=== PATIENT | female | born 1970 | race Caucasian/White ===

== ENCOUNTER 2021-11-24 09:56 | Outpatient (CLI) | payer OTHER, SELFPAY ==
[2021-11-24 12:22] LABS: Erythrocyte Sedimentation Rate 2 mm/hr (0-30)
[2021-11-24 12:28] LABS: Absolute Lymphocyte Count 1.65 X10^3/uL (0.83-4.51); Absolute Neutrophil Count 3.3 X10^3/uL (2.0-7.7); Basophil# 0.04 X10^3/uL; Basophil% 0.7 % (0-1); Eosinophil# 0.12 X10^3/uL; Eosinophils% 2.2 % (0-5); Hematocrit 43.6 % (37-47); Hemoglobin 14.6 g/dL (12.0-15.0); Lymphocyte # 1.65 X10^3/ul (0.83-4.51); Lymphocyte % 29.9 % (19-41); Mean Corp Hgb Conc 33.5 g/dL (32-36); Mean Corpuscular Hgb 31.4 pg (27.0-32.0); Mean Corpuscular Volume 93.8 fL (81-99); Mean Platelet Vol. 10.7 fl (6.2-12.0); Monocyte# 0.43 X10^3/uL; Monocyte% 7.8 % (0-10); NRBC Flagged by Analyzer 0 % (0-5); Neutrophil # 3.26 X10^3/uL (2.7-7.7); Neutrophil % 59.2 % (47-70); Platelet Count 264 K/mm3 (150-450); RBC Distribution Width CV 13.4 % (11.6-14.6); RBC Distribution Width SD 46.4 fl (35.1-43.9); Red Blood Count 4.65 M/mm3 (4.2-5.4); White Blood Count 5.5 K/mm3 (4.4-11.0)
[2021-11-24 12:33] LABS: ALB/GLOB Ratio 1.1 RATIO (0.9-2.4); AST(SGOT) 11 U/L (15-37); Alanine Aminotransfer ALT/SGPT 16 U/L (13-56); Albumin, Serum 3.7 g/dL (3.2-5.0); Alkaline Phosphatase 87 U/L (45-117); Anion Gap 3 (5-15); BUN 14 mg/dL (7-18); BUN/Creat Ratio 20.4 RATIO (10-20); CRP < 2.90 mg/L (0.0-3.0); Calcium,Total 8.7 mg/dL (8.5-10.1); Chloride 107 mmol/L (98-107); Creatinine, Serum 0.69 mg/dL (0.55-1.02); EST Glomerular Filtration Rate 95 mL/min (>60); Est Glom Filt Rate - Afr Amer 116 mL/min (>60); Globulin 3.4 g/dL (2.2-4.2); Glucose 88 mg/dL (74-106); Potassium 4.1 mmol/L (3.5-5.1); Protein, Total 7.1 g/dL (6.4-8.2); Rheumatoid Factor < 10.0 IU/mL (<15); Sodium Level 138 mmol/L (136-145); Thyroid Stim Hormone (TSH) 1.42 uIU/mL (0.358-3.74); Uric Acid 4.2 mg/dL (2.6-6.0)
[2021-11-26 16:13] LABS: ANTINUCLEAR ANTIBODIES DIRECT Negative (Negative)
== END 2021-11-24 23:59 | disposition home or self-care (01) ==
LOC: MFPLAB 09:58
PROVIDERS: PCP Family Medicine; Referring Provider Family Medicine; Visit Provider Family Medicine
DX: M25.50 Pain in unspecified joint (principal); M25.473 Effusion, unspecified ankle
CPT/HCPCS: 36415; 80053; 84443; 84550; 85025; 85652; 86038; 86140; 86431

== ENCOUNTER → 2023-10-21 | Outpatient (CLI) | payer OTHER, SELFPAY ==
--- OUTSIDE RECORDS SUMMARY | 2023-10-21 07:11 | XMS RPT_ITS | CCD ---
Author Name Unknown Address [address] [place] [address] Organization [facility] Care Team Providers Care Poultry Killer Name Role Phone Unavailable Primary Care Provider UnavailClaudia Larkin Primary Care Provider [phone] Claudia Fernandes Primary Care Provider Claudia Fernandes Primary Care Provider SUZIE LUNSFORD Attending Unavailable SUZIE LUNSFORD Referring Unavailable CLAUDIA FERNANDES Primary Care Unavailable SUZIE LUNSFORD Attending Unavailable CLAUDIA FERNANDES Primary Care Unavailable Medications Current Medications Medication Drug Class(es) Dates Sig (Normalized) Sig (Original) drospirenone 4 mg oral tablet (5 sources) Progestin Start: 08-17-2022 End: 08-30-2023 take 1 tablet by mouth once daily Drospirenone 4 MG tablet Take 1 tablet by mouth daily. 28 tablet 2 08/30/2023 Active estrogens, conjugated (long term) 0.625 mg/ml vaginal cream (7 sources) Estrogen Start: 10-11-2023 Estrogens Conjugated (Premarin) vaginal cream Thin layer to vaginal opening 2-3 times per week 30 g 0 10/11/2023 Active Completed/Discontinued Medications Medication Drug Class(es) Dates Sig (Normalized) Sig (Original) 50 ml sodium chloride 9 mg/ml injection (1 source) Start: 08-19-2021 End: 08-19-2021 0.9 % sodium chloride bolus Problems Active Problems Problem Classification Problem Date Documented Da te Episodic/Chronic Cardiac dysrhythmias (1 source) Palpitations; Translations: [Palpitations] Episodic Other female genital disorders (1 source) Abnormal uterine bleeding; Translations: [Abnormal uterine bleeding] Chronic Past or Other Problems Problem Classification Problem Date Documented Da te Episodic/Chronic Other screening for suspected conditions (not mental disorders or infectious disease) (5 sources) Patient encounter status; Translations: [Encounter for screening mammogram for malignant neoplasm of breast] Onset: 12-07-2022 Episodic Results Test Name Value Interpretation Reference Range Facil ity Vital Signs Date Time Vital Sign Value Performing Clinician Faci lity 10-11-2023 10:19-0500 Diastolic blood pressure 85 mm[Hg] Suzie Lunsford MD Work Phone: [employer] 10-11-2023 10:19-0500 Heart rate 73 /min Suzie Lunsford MD Work Phone: [employer] 10-11-2023 10:19-0500 Systolic blood pressure 128 mm[Hg] Suzie Lunsford MD Work Phone: [facility] [employer] 10-11-2023 10:18-0500 Body height 154.9 cm Suzie Lunsford MD Work Phone: [employer] 10-11-2023 10:18-0500 Body mass index (BMI) [Ratio] 27.59 kg/m2 Suzie Lunsford MD Work Phone: [employer] 10-11-2023 10:18-0500 Body weight 66.22 kg Suzie Lunsford MD Work Phone: [facility] [employer] 12-07-2022 11:12-0500 Body height 154.9 cm Suzie Lunsford MD Work Phone: [employer] 12-07-2022 11:12-0500 Body mass index (BMI) [Ratio] 25.51 kg/m2 Suzie Lunsford MD Work Phone: [employer] 12-07-2022 11:12-0500 Body weight 61.24 kg Suzie Lunsford MD Work Phone: [facility] [employer] 08-19-2021 09:40-0500 Body temperature 98.01 [degF] Manuel Norton MD Work Phone: [facility] 08-19-2021 09:40-0500 Diastolic blood pressure 99 mm[Hg] Manuel Norton MD Work Phone: [facility] 08-19-2021 09:40-0500 Heart rate 99 /min Manuel Norton MD Work Phone: [facility] 08-19-2021 09:40-0500 Respiratory rate 20 /min Manuel Norton MD Work Phone: [facility] 08-19-2021 09:40-0500 SaO2% (BldA) [Mass fraction] 100 % Manuel Norton MD Work Phone: [facility] 08-19-2021 09:40-0500 Systolic blood pressure 156 mm[Hg] Manuel Norton MD Work Phone: [facility] Encounters Encounter Date Encounter Type Care Provider Facility Start: 10-11-2023 End: 10-11-2023 ambulatory [facility] with [facility] Start: 10-11-2023 End: 10-11-2023 Encounter for gynecological examination (general) (routine) without abnormal findings [facility] with [facility] Start: 10-11-2023 End: 10-11-2023 Patient encounter procedure Suzie Lunsford MD Work Phone: [facility] Work Phone: Start: 10-11-2023 End: 10-11-2023 Periodic preventive med est patient 40-64yrs Suzie Lunsford MD Work Phone: [facility] Procedures Date Procedure Procedure Detail Performing Clinician Start: 12-07-2022 Mammography Suzie denise MD Work Phone: Start: 08-19-2021 Radiologic exam ches t single view Manuel Norton MD Work Phone: Start: 08-19-2021 Basic metabolic pane l calcium total Manuel Norton MD Work Phone: Start: 08-19-2021 Urine test visual color cmprsn meths Manuel Norton MD Work Phone: Start: 08-19-2021 Ecg routine ecg w/le ast 12 lds w/i&r Manuel Norton MD Work Phone: Start: 06-03-2020 Assay of thyroid stimulating hormone tsh Suzie Lunsford Work Phone: Start: 06-03-2020 Blood count complete automated Suzie Lunsford Work Phone: Start: 04-29-2020 Microscopic observat ion [Identifier] in Cervix by Cyto stain Manuel Norton MD Work Phone: Plan of Treatment Date Care Activity Detail Author Start: 2029 RSV Immunization age d 60 or older (1 - 1-dose 60+ series) RSV Immunization aged 60 or older (1 - 1-dose 60+ series) [facility] Start: 04-03-2028 DTaP/Tdap/Td vaccine (2 - Td or Tdap) DTaP/Tdap/Td vaccine (2 - Td or Tdap) [facility] Start: 04-03-2028 DTaP/Tdap/Td vaccine (2 - Td) DTaP/Tdap/Td vaccine (2 - Td) [place] Start: 04-03-2028 DTaP/Tdap/Td Vaccine s (2 - Td or Tdap) DTaP/Tdap/Td Vaccines (2 - Td or Tdap) [facility] Start: 04-29-2025 Screening for malign ant neoplasm of cervix [facility] Start: 12-08-2023 Screening for malign ant neoplasm of breast Mammogram [facility] Start: 10-11-2023 End: 12-09-2024 DBT Breast - bilateral screening Bilateral screening mammogram with tomosynthesis Imaging Routine Encounter for screening mammogram for malignant neoplasm of breast Expected: 10/11/2023, Expires: 12/09/2024 [facility] Work Phone: Payers Date Payer Category Payer Unknown [employer] [place] [employer] [id number] 2021-Present [address] [place] [address] Commercial [id number] 2019 Unknown [id number] Social History Date Type Detail Facility Start: 04-29-2020 End: 06-03-2020 Tobacco smoking status NHIS Never smoker [facility] Start: 04-29-2020 End: 06-03-2020 Tobacco use and exposure Never used [facility] Cramer Start: 06-03-2020 End: 10-11-2023 Alcohol intake Current drinker of alcohol (finding) [facility] Larson Start: 1970 Sex Assigned At Not on file M [facility] Williamson Start: 11-27-2022 End: 12-07-2022 Exposure to SARS-CoV-2 (event) Not sure [facility] Larson Start: 12-07-2022 History of Social function [facility] Start: 12-07-2022 Tobacco use panel [facility] History of Present illness Narrative 10-11-2023 Suzie Lunsford MD - 10/11/2023 10:15 AM EST Note Date & Type Note Facility 10-11-2023 History of Presen t illness Narrative Adriana Davenport 10/11/2023 53 y.o. Chief Complaint Patient presents with Annual Exam Annual exam No LMP recorded. Primary Care Physician: CLAUDIA FERNANDES The patient was seen and examined. She is here for her annual exam. Pap neg 2019. Mg 12/20 wnl. Colonoscopy needed. Vaginal estrogen 2 times per week due to discomfort with sex. Stopping slynd. No pelvic pain or bleeding . HPI : Adriana Davenport is a 53 y.o. female OB History Para Term AB Living 4 4 4 SAB IAB Ectopic Multiple Live Births # Outcome Date GA Lbr Henry/2nd Weight Sex Delivery Anes PTL Lv 4 Term 3 Term 2 Term 1 Term History reviewed. No pertinent past medical history. Past Surgical History: Procedure Laterality Date TONSILLECTOMY AND ADENOIDECTOMY (HISTORICAL) Family History Problem Relation Name Age of Onset Colon cancer Neg Hx Uterine cancer Neg Hx Breast cancer Neg Hx Ovarian cancer Neg Hx Social History Socioeconomic History Marital status: Spouse name: Not on file Number of children: Not on file Years of education: Not on file Highest education level: Not on file Occupational History Not on file Tobacco Use Smoking status: Never Smokeless tobacco: Never Vaping Use Vaping Use: Never used Substance and Sexual Activity Alcohol use: Yes Drug use: Never Sexual activity: Not on file Other Topics Concern Not on file Social History Narrative Not on file Social Determinants of Health Financial Resource Strain: Not on file Food Insecurity: Not on file Transportation Needs: Not on file Physical Activity: Not on file Stress: Not on file Social Connections: Not on file Intimate Partner Violence: Not on file Housing Stability: Not on file MEDICATIONS: Current Outpatient Medications Medication Sig Dispense Refill Drospirenone 4 MG tablet Take 1 tablet by mouth daily. 28 tablet 2 Estrogens Conjugated (Premarin) vaginal cream Thin layer to vaginal opening 2-3 times per week 30 g 0 triamcinolone (Kenalog) 0.1 % cream APPLY CREAM EXTERNALLY TO AFFECTED AREA TWICE DAILY No current facility-administered medications for this visit. ALLERGIES: Allergies as of 10/11/2023 (No Known Allergies) GynecologicHistory: Menstrual History: No LMP recorded. Review of Systems Constitutional: Negative for fatigue, fever and unexpected weight change. HENT: Negative for congestion and sore throat. Eyes: Negative for discharge and visual disturbance. Respiratory: Negative for cough and shortness of breath. Cardiovascular: Negative for chest pain and leg swelling. Gastrointestinal: Negative for abdominal pain, constipation, diarrhea, nausea and vomiting. Genitourinary: Negative for dysuria and pelvic pain. Musculoskeletal: Negative for arthralgias and back pain. Skin: Negative for rash. Neurological: Negative for weakness and headaches. Psychiatric/Behavioral: Negative for dysphoric mood. The patient is not nervous/anxious. PHYSICAL Exam: Constitutional: Vitals: 10/11/23 1018 10/11/23 1019 BP: (!) 141/92 128/85 Pulse: 76 73 Weight: 146 lb (66.2 kg) Height: 5' 1 (1.549 m) Physical Exam Constitutional: General: She is not in acute distress. Appearance: Normal appearance. HENT: Head: Normocephalic and atraumatic. Right Ear: External ear normal. Left Ear: External ear normal. Nose: Nose normal. Eyes: Conjunctiva/sclera: Conjunctivae normal. Neck: Thyroid: No thyromegaly. Cardiovascular: Rate and Rhythm: Normal rate. Pulmonary: Effort: Pulmonary effort is normal. No respiratory distress. Chest: Breasts: Right: No mass, nipple discharge, skin change or tenderness. Left: No mass, nipple discharge, skin change or tenderness. Abdominal: General: There is no distension. Palpations: Abdomen is soft. Tenderness: There is no abdominal tenderness. Genitourinary: General: Normal vulva. Pubic Area: No rash. Labia: Right: No rash or lesion. Left: No rash or lesion. Vagina: No vaginal discharge or bleeding. Cervix: No cervical motion tenderness. Uterus: Not enlarged and not tender. Adnexa: Right: No mass or tenderness. Left: No mass or tenderness. Rectum: Normal. Musculoskeletal: General: No swelling. Normal range of motion. Cervical back: Normal range of motion. Right lower leg: No edema. Left lower leg: No edema. Skin: General: Skin is warm and dry. Neurological: Mental Status: She is alert and oriented to person, place, and time. Mental status is at baseline. Psychiatric: Mood and Affect: Mood normal. Behavior: Behavior normal. ASSESSMENT: 53 y.o. Annual Diagnosis Plan 1. Well woman exam with routine gynecological exam Pap Smear 2. Encounter for screening mammogram for malignant neoplasm of breast Bilateral screening mammogram with tomosynthesis Chief Complaint Patient presents with Annual Exam Annual exam History reviewed. No pertinent past medical history. Hereditary Breast, Ovarian, Colon and Uterine Cancer screening Done. Tobacco & Secondary smoke risks reviewed; instructed on cessation and avoidance PLAN: Follow up in about 1 year (around 10/11/2024) for annual. Repeat Annual every 1 year PAP guidelines reviewed with pt Mammograms annually if normal. colonoscopy recommendations reviewed with patient. Routine health maintenance per patients PCP. Orders Placed This Encounter Procedures Bilateral screening mammogram with tomosynthesis Standing Status: Future Standing Expiration Date: 12/09/2024 documented in this encounter [facility] Telephone encounter Note 09-02-2023 Telephone Encounter - Ana Paula - 09/02/2023 9:00 AM EST Note Date & Type Note Facility 09-02-2023 Telephone encounter Note Form atting of this note might be different from the original. Pt notified [facility] Note 09-02-2023 Telephone Encounter - Ana Paula - 09/02/2023 9:00 AM ESTTelephone Encounter - Suzie Lunsford MD - 08/30/2023 6:00 PM ESTTelephone Encounter - Brittani Mittal - 08/30/2023 12:23 PM EST Note Date & Type Note Facility 09-02-2023 Miscellaneous Notes Formattin g of this note might be different from the original. Pt notified Refills sent Name of caller: Adriana Contact phone number: [phone] Relationship to Patient: patient Provider: [facility] Practice: OBGYN Chief Complaint/Reason for Call: Pt calling because she had discussed with Dr Lunsford about stopping the control but her annual isn't until 10/11/23. Pt only has two weeks of current pack left and wanted to know if Dr Lunsford wanted to call in more to get her until her appointment or stop it all together. Please advise. Best time of day caller can be reached: Any Patient advised that office/PCP has 24-48 business hours to return their call: documented in this encounter [facility] Telephone encounter Note 08-30-2023 Telephone Encounter - Suzie Lunsford MD - 08/30/2023 6:00 PM EST Note Date & Type Note Facility 08-30-2023 Telephone encounter Note Form atting of this note might be different from the original. Refills sent [facility] Telephone encounter Note 08-30-2023 Telephone Encounter - Brittani Mittal - 08/30/2023 12:23 PM EST Note Date & Type Note Facility 08-30-2023 Telephone encounter Note Form atting of this note might be different from the original. Name of caller: Adriana Contact phone number: [phone] Relationship to Patient: patient Provider: [facility] Practice: OBGYN Chief Complaint/Reason for Call: Pt calling because she had discussed with Dr Lunsford about stopping the control but her annual isn't until 10/11/23. Pt only has two weeks of current pack left and wanted to know if Dr Lunsford wanted to call in more to get her until her appointment or stop it all together. Please advise. Best time of day caller can be reached: Any Patient advised that office/PCP has 24-48 business hours to return their call: [facility] Evaluation note Note Date & Type Note Facility documented in this encounter [facility] Work Phone: Evaluation note Note Date & Type Note Facility documented in this encounter [facility] Evaluation note Note Date & Type Note Facility documented in this encounter [facility] Hospital Discharge instructions InstructionsAttachments Note Date & Type Note Facility Hospital Discharge instructions Manuel Norton MD - 08/19/2021 If you continue to have palpitations you may need to have a Holter monitor that can be set up by your primary care physician. 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 ACP-Advance Directive ACP-Power of Hog Room Supervisor Assessments Diagnosis Abnormal uterine bleeding Unspecified disorder of menstruation and other abnormal bleeding from female genital tract Reason for Referral Specialty Diagnoses / Procedures Referred By Contac t Referred To Contact Suzie Lunsford MD [address] [place] [address] Referral ID Status Reason Start Date Expiration Date V isits Requested Visits Authorized [id number] Authorized 1 1 Additional Source Comments INFORMATION SOURCE (unrecogn ized section and content) DATE CREATED AUTHOR AUTHOR'S ORGANIZ ATION 08/22/2021 [email or web address] DATE CREATED AUTHOR AUTHOR'S ORGANIZ ATION 10/19/2023 [employer] [facility] Reason for Visit (unrecogniz ed section and content) Reason Onset Date Comments Medication Problem 08/30/2023 Reason Comments Annual Exam Annual exam Scheduled Active and Recently Administ ered Medications (unrecognized section and content) Care Teams (unrecognized sec tion and content) Poultry Killer Relationship Specialty Start Date End Date Claudia Fernandes [address] [facility] [address] [place] [id number] PCP - General 05/05/21 Poultry Killer Relationship Specialty Start Date End Date Claudia Fernandes [address] [facility] [address] [place] [address] PCP - General 05/05/21 Poultry Killer Relationship Specialty Start Date End Date Claudia Fernandes Bella [address] [facility] [address] [place] [address] PCP - General 05/05/21 FOR RECORDS PERTAINING TO PATIENTS WHO ARE OR HAVE BEEN ENROLLED IN A CHEMICAL DEPENDENCY/SUBSTANCEABUSE PROGRAM, SOME INFORMATION MAY BE OMITTED. This clinical summary was aggregated from multiple sources. Caution should be exercised in using it in the provision of clinical care. This summary normalizes information from multiple sources, and as a consequence, information in this document may materially change the coding, format and clinical context of patient data. In addition, data may be omitted in some cases. CLINICAL DECISIONS SHOULD BE BASED ON THE PRIMARY CLINICAL RECORDS. [facility]. provides no warranty or guarantee of the accuracy or completeness of information in this document.
[2023-10-21 10:16] LABS: Absolute Lymphocyte Count 2.53 X10^3/uL (0.83-4.51); Absolute Neutrophil Count 2.9 X10^3/uL (2.0-7.7); Basophil# 0.06 X10^3/uL; Eosinophil# 0.22 X10^3/uL; Eosinophils% 3.6 % (0-5); Hemoglobin 14.6 g/dL (12.0-15.0); Lymphocyte # 2.53 X10^3/ul (0.83-4.51); Lymphocyte % 41.6 % (19-41); Mean Corpuscular Hgb 30.7 pg (27.0-32.0); Mean Corpuscular Volume 90.5 fL (81-99); Monocyte# 0.41 X10^3/uL; Monocyte% 6.7 % (0-10); NRBC Flagged by Analyzer 0 % (0-5); Neutrophil # 2.85 X10^3/uL (2.7-7.7); Neutrophil % 46.9 % (47-70); Platelet Count 234 K/mm3 (150-450); RBC Distribution Width CV 13.2 % (11.6-14.6); RBC Distribution Width SD 43.4 fl (35.1-43.9); Red Blood Count 4.75 M/mm3 (4.2-5.4); White Blood Count 6.1 K/mm3 (4.4-11.0)
[2023-10-21 10:34] LABS: Hemoglobin A1c 5.2 % (3.8-5.6)
[2023-10-21 10:49] LABS: ALB/GLOB Ratio 1.1 RATIO (0.9-2.4); AST(SGOT) 12 U/L (15-37); Alanine Aminotransfer ALT/SGPT 17 U/L (13-56); Albumin, Serum 3.4 g/dL (3.2-5.0); Alkaline Phosphatase 91 U/L (45-117); Anion Gap 6 (5-15); BUN 12 mg/dL (7-18); BUN/Creat Ratio 14.2 RATIO (10-20); Chloride 108 mmol/L (98-107); Cholesterol 204 mg/dL (200); Creatinine, Serum 0.85 mg/dL (0.55-1.02); EST Glomerular Filtration Rate 74 mL/min (>60); Est Glom Filt Rate - Afr Amer 90 mL/min (>60); Follicle Stimulating Hormone 60.1 mIU/mL; Globulin 3.2 g/dL (2.2-4.2); Glucose 91 mg/dL (74-106); High Density Lipoprotein 64 mg/dL; Luteinizing Hormone 28.3 mIU/mL; Potassium 3.8 mmol/L (3.5-5.1); Protein, Total 6.6 g/dL (6.4-8.2); Sodium Level 138 mmol/L (136-145); Thyroid Stim Hormone (TSH) 4.09 uIU/mL (0.358-3.74); Triglycerides 96 mg/dL; Very Low Density Lipoprotein 19 mg/dL (5-40)
== END | disposition home or self-care (01) ==
LOC: MTLAB 07:06
PROVIDERS: PCP Family Medicine; Referring Provider Family Medicine; Visit Provider Family Medicine
DX: Z13.228 Encounter for screening for other metabolic disorders (principal); Z78.0 Asymptomatic menopausal state; Z13.0 Encounter for screening for diseases of the blood and blood-forming organs and certain disorders involving the immune mechanism
CPT/HCPCS: 36415; 80053; 80061; 83001; 83002; 83036; 84443; 85025

== ENCOUNTER → 2023-10-31 | Outpatient (CLI) | payer OTHER, SELFPAY ==
--- OUTSIDE RECORDS SUMMARY | 2023-10-31 07:17 | XMS RPT_ITS | CCD ---
Author Name Unknown Address [address] [place] [address] Organization [facility] Care Team Providers Care Gis Software Developer Name Role Phone Unavailable Primary Care Provider UnavailClaudia Larkin Primary Care Provider [phone] Claudia Fernandes Primary Care Provider Claudia Fernandes Primary Care Provider SUZIE LUNSFORD Referring Unavailable SUZIE LUNSFORD Attending Unavailable CLAUDIA FERNANDES Primary Care Unavailable SUZIE LUNSFORD Attending Unavailable CLAUDIA FERNANDES Primary Care Unavailable Medications Current Medications Medication Drug Class(es) Dates Sig (Normalized) Sig (Original) drospirenone 4 mg oral tablet (6 sources) Progestin Start: 08-17-2022 End: 08-30-2023 take 1 tablet by mouth once daily Drospirenone 4 MG tablet Take 1 tablet by mouth daily. 28 tablet 2 08/30/2023 Active estrogens, conjugated (long term) 0.625 mg/ml vaginal cream (8 sources) Estrogen Start: 10-11-2023 Estrogens Conjugated (Premarin) [...] 85 mm[Hg] Suzie Lunsford MD Work Phone: [employer] [facility] 10-11-2023 10:19-0500 Heart rate 73 /min Suzie Lunsford MD Work Phone: [employer] [facility] 10-11-2023 10:19-0500 Systolic blood pressure 128 mm[Hg] Suzie Lunsford MD Work Phone: [facility] 10-11-2023 10:18-0500 Body height 154.9 cm Suzie Lunsford MD Work Phone: [employer] [facility] 10-11-2023 10:18-0500 Body mass index (BMI) [Ratio] 27.59 kg/m2 Suzie Lunsford MD Work Phone: [employer] [facility] 10-11-2023 10:18-0500 Body weight 66.22 kg Suzie Lunsford MD Work Phone: [facility] 12-07-2022 11:12-0500 Body height 154.9 cm Suzie Lunsford MD Work Phone: [employer] [facility] 12-07-2022 11:12-0500 Body mass index (BMI) [Ratio] 25.51 kg/m2 Suzie Lunsford MD Work Phone: [employer] [facility] 12-07-2022 11:12-0500 Body weight 61.24 kg Suzie Lunsford MD Work Phone: [facility] 08-19-2021 09:40-0500 Body temperature 98.01 [degF] Manuel Norton MD Work Phone: [facility] 08-19-2021 09:40-0500 Diastolic blood pressure 99 mm[Hg] Manuel Norton MD Work Phone: [facility] 08-19-2021 09:40-0500 Heart rate 99 /min Manuel Norton MD Work Phone: [facility] 08-19-2021 09:40-0500 Respiratory rate 20 /min Manuel Norton MD Work Phone: [facility] 08-19-2021 09:40-0500 SaO2% (BldA) [Mass fraction] 100 % Manuel Norton MD Work Phone: [facility] 08-19-2021 09:40-0500 Systolic blood pressure 156 mm[Hg] Manuel Norton MD Work Phone: [facility] Encounters Encounter Date Encounter Type Care Provider Facility Start: 10-18-2023 Telephone encounter Suzie denise MD Work Phone: [facility] Start: 10-11-2023 End: 10-11-2023 ambulatory [facility] Start: 10-11-2023 End: 10-11-2023 Encounter for gynecological examination (general) (routine) without abnormal findings [facility] Start: 10-11-2023 End: 10-11-2023 Patient encounter procedure Suzie Lunsford MD Work Phone: [facility] Work Phone: Start: 10-11-2023 End: 10-11-2023 Periodic preventive med est patient 40-64yrs Suzie Lunsford MD Work Phone: [facility] Procedures Date Procedure Procedure Detail Performing Clinician Start: 10-11-2023 Microscopic observat ion [Identifier] in Cervix by Cyto stain Suzie Lunsford MD Work Phone: Start: 12-07-2022 Mammography Suzie denise MD Work [...] Assay of thyroid stimulating hormone tsh Suzie Dixie Work Phone: Start: 06-03-2020 Blood count complete automated Suzie Lunsford Work Phone: Start: 04-29-2020 Microscopic observat ion [Identifier] in Cervix by Cyto stain Manuel Norton MD Work Phone: Plan of Treatment Date Care Activity Detail Author Start: 2029 RSV Immunization age d 60 or older (1 - 1-dose 60+ series) RSV Immunization aged 60 or older (1 - 1-dose 60+ series) [facility] Start: 10-11-2028 Screening for malign ant neoplasm of cervix [facility] Start: 04-03-2028 DTaP/Tdap/Td vaccine (2 - Td or Tdap) DTaP/Tdap/Td vaccine (2 - Td or Tdap) [facility] Start: 04-03-2028 DTaP/Tdap/Td vaccine (2 - Td) DTaP/Tdap/Td vaccine (2 - Td) [place] Start: 04-03-2028 DTaP/Tdap/Td Vaccine s (2 - Td or Tdap) DTaP/Tdap/Td Vaccines (2 - Td or Tdap) [facility] Start: 10-11-2026 Screening for malign ant neoplasm of cervix Pap Smear [facility] Start: 04-29-2025 Screening for malign ant neoplasm of cervix [facility] Start: 12-08-2023 Screening for malign ant neoplasm of breast Mammogram [facility] Start: 11-29-2023 End: 11-29-2023 Patient encounter procedure 11/29/2023 8:30 AM EST Office Visit [facility] [address] [place] [id number] Suzie Lunsford MD [address] [place] [id number] [facility] Start: 10-11-2023 End: 12-09-2024 DBT Breast - bilateral screening Bilateral screening mammogram with tomosynthesis Imaging Routine Encounter for screening mammogram for malignant neoplasm of breast Expected: 10/11/2023, Expires: 12/09/2024 [facility] Work Phone: Payers Date Payer Category Payer Unknown [employer] [id number] 2021-Present [address] [place] [address] Commercial [id number] 2019 Unknown [id number] Social History Date Type Detail Facility Start: 04-29-2020 End: 06-03-2020 Tobacco smoking status NHIS Never smoker [place] Start: 04-29-2020 End: 06-03-2020 Tobacco use and exposure Never used [place], [place] Start: 06-03-2020 End: 10-11-2023 Alcohol intake Current drinker of alcohol (finding) [place], [place] Start: 1970 Sex Assigned At Not on file [place] Start: 11-27-2022 End: 12-07-2022 Exposure to SARS-CoV-2 (event) Not sure [place] Start: 12-07-2022 History of Social function [facility] Start: 12-07-2022 Tobacco use panel [facility] Clinical Notes 08-30-2023 to 10-23-2023 Telephone Encounter - Ana Paula - 10/23/2023 4:11 PM ESTTelephone Encounter - Ana Paula - 10/23/2023 4:11 PM ESTTelephone Encounter - Renay Barrera - 10/23/2023 3:03 PM EST Note Date & Type Note Facility 10-23-2023 Telephone encounter Note Form atting of this note might be different from the original. Spoke to pt, appt is fine. [facility] 10-23-2023 Miscellaneous Notes Formattin g of this note might be different from the original. Spoke to pt, appt is fine. Patient called and is scheduled for [place] on 11/29/23 at 8:[address] Lunsford -- she is concerned about it being so far away and asked if she should be doing it sooner somehow since she had an abnormal result. L/M for pt to call to schedule appt for a colp with Patient with abnormal pap. Needs colposcopy. Pt called. Please help schedule patient. documented in this encounter [facility] 10-23-2023 Telephone encounter Note Form atting of this note might be different from the original. Patient called and is scheduled for [place] on 11/29/23 at 8:[address] Lunsford -- she is concerned about it being so far away and asked if she should be doing it sooner somehow since she had an abnormal result. [facility] 10-23-2023 Telephone encounter Note Form atting of this note might be different from the original. L/M for pt to call to schedule appt for a colp with [facility] 10-18-2023 Telephone encounter Note Form atting of this note might be different from the original. Patient with abnormal pap. Needs colposcopy. Pt called. Please help schedule patient. [employer] 10-11-2023 History of Presen t illness Narrative [...] Live Births # Outcome Date GA Lbr Ehnry/2nd Weight Sex Delivery Anes PTL Lv 4 [...] Expiration Date: 12/09/2024 documented in this encounter [facility] 09-02-2023 Telephone encounter Note Form atting of this note might be different from the original. Pt notified [facility] 09-02-2023 Miscellaneous Notes Formattin g of this note might be different from the original. Pt notified Refills sent Name of caller: Adriana Contact phone number: [phone] Relationship to Patient: patient Provider: Dixie Practice: [facility] Chief Complaint/Reason for Call: Pt calling because [...] return their call: documented in this encounter [facility] 08-30-2023 Telephone encounter Note Form atting of this note might be different from the original. Refills sent [facility] 08-30-2023 Telephone encounter Note Form atting of this note might be different from the original. Name of caller: Adriana Contact phone number: [phone] Relationship to Patient: patient Provider: Dixie Practice: [facility] Chief Complaint/Reason for Call: Pt calling because [...] 24-48 business hours to return their call: [employer] [facility] documented in this encounter [email or web address] Work Phone: Evaluation note* Diagnosis Encounter for screening mammogram for malignant neoplasm of breast [facility] Diagnosis Well woman exam with routine gynecological exam- Primary Routine gynecological examination Encounter for screening mammogram for malignant neoplasm of breast [facility]* Instructions* Manuel Norton MD - 08/19/2021 If you continue to have palpitations you may need to have a Holter monitor that can be set up by your primary care physician. * Attachments The following attachments cannot be sent through Care Everywhere. 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 ACP-Advance Directive ACP-Power of Levi Maker Assessments Diagnosis Abnormal uterine bleeding Unspecified disorder of menstruation and other abnormal bleeding from female genital tract Reason for Referral Specialty Diagnoses / Procedures Referred By Contvishal t Referred To Contact Suzie Lunsford [facility] [address] [address] [place] [address] Referral ID Status Reason Start Date Expiration Date V isits Requested Visits Authorized [id number] Authorized 1 1 Additional Source Comments INFORMATION SOURCE (unrecogn ized section and content) DATE CREATED AUTHOR AUTHOR'S ORGANIZ ATION 08/22/2021 [facility] DATE CREATED AUTHOR AUTHOR'S ORGANIZ ATION 10/25/2023 [facility] Reason for Visit (unrecogniz ed section and content) Reason Onset Date Comments Medication Problem 08/30/2023 Reason Comments Annual Exam Annual exam Scheduled Active and Recently Administ ered Medications (unrecognized section and content) Care Teams (unrecognized sec tion and content) Gis Software Developer Relationship Specialty Start Date End Date Claudia Fernandes [address] [facility] [address] [place] [address] PCP - General 05/05/21 [employer] Developer Relationship Specialty Start Date End Date Claudia Fernandes [address] [facility] [address] [place] [address] PCP - General 05/05/21 [employer] Developer Relationship Specialty Start Date End Date Claudia Fernandes [address] [facility] [address] [place] [address] PCP - General 05/05/21 [employer]is Software Developer Relationship Specialty Start Date End Date Claudia Fernandes [address] [facility] [address] [place] [address] PCP - General 05/05/21 FOR RECORDS PERTAINING [...] BE BASED ON THE PRIMARY CLINICAL RECORDS. [facility]. provides no warranty or guarantee of the accuracy or completeness of information in this document.
[2023-10-31 10:34] LABS: Free T3 2.8 pg/mL (2.18-3.98); T4 Free Direct 0.97 ng/dL (0.76-1.46); Thyroid Stim Hormone (TSH) 2.54 uIU/mL (0.358-3.74)
[2023-11-02 07:11] LABS: Anti-Thyroglobulin AB < 1.0 IU/mL (0.0-0.9); Thyroglobulin, Serum Qt. 19.4 ng/mL (1.5-38.5); Thyroid Peroxidase AB < 9 IU/mL (0-34); Thyroid Stim Immunoglob <0.10 IU/L (0.00-0.55)
== END | disposition home or self-care (01) ==
LOC: MTLAB 07:15
PROVIDERS: PCP Family Medicine; Referring Provider Family Medicine; Visit Provider Family Medicine
DX: R79.89 Other specified abnormal findings of blood chemistry (principal)
CPT/HCPCS: 36415; 84432; 84439; 84443; 84445; 84481; 86376; 86800

== ENCOUNTER → 2024-03-31 | Outpatient (CLI) | payer OTHER, SELFPAY ==
[2024-03-31 14:36] LABS: Absolute Lymphocyte Count 1.98 X10^3/uL (0.83-4.51); Absolute Neutrophil Count 3.9 X10^3/uL (2.0-7.7); Basophil# 0.06 X10^3/uL; Basophil% 0.9 % (0-1); Eosinophil# 0.08 X10^3/uL; Eosinophils% 1.3 % (0-5); Hematocrit 46.4 % (37-47); Hemoglobin 15.7 g/dL (12.0-15.0); Lymphocyte # 1.98 X10^3/ul (0.83-4.51); Lymphocyte % 31.2 % (19-41); Mean Corp Hgb Conc 33.8 g/dL (32-36); Mean Corpuscular Hgb 30.1 pg (27.0-32.0); Mean Corpuscular Volume 88.9 fL (81-99); Mean Platelet Vol. 9.9 fl (6.2-12.0); Monocyte# 0.32 X10^3/uL; NRBC Flagged by Analyzer 0 % (0-5); Neutrophil % 61.4 % (47-70); Platelet Count 244 K/mm3 (150-450); RBC Distribution Width CV 13.4 % (11.6-14.6); RBC Distribution Width SD 43.7 fl (35.1-43.9); Red Blood Count 5.22 M/mm3 (4.2-5.4); White Blood Count 6.4 K/mm3 (4.4-11.0)
[2024-03-31 14:56] LABS: Hemoglobin A1c 5.1 % (3.8-5.6)
[2024-03-31 15:00] LABS: ALB/GLOB Ratio 1.2 RATIO (0.9-2.4); AST(SGOT) 28 U/L (15-37); Alanine Aminotransfer ALT/SGPT 47 U/L (13-56); Albumin, Serum 3.9 g/dL (3.2-5.0); Alkaline Phosphatase 111 U/L (45-117); Anion Gap 8 (5-15); BUN 12 mg/dL (7-18); BUN/Creat Ratio 15.5 RATIO (10-20); Calcium,Total 9.4 mg/dL (8.5-10.1); Chloride 108 mmol/L (98-107); Cholesterol 223 mg/dL (200); Creatinine, Serum 0.78 mg/dL (0.55-1.02); EST Glomerular Filtration Rate 82 mL/min (>60); Est Glom Filt Rate - Afr Amer 99 mL/min (>60); Globulin 3.3 g/dL (2.2-4.2); Glucose 92 mg/dL (74-106); High Density Lipoprotein 74 mg/dL; Potassium 3.8 mmol/L (3.5-5.1); Protein, Total 7.2 g/dL (6.4-8.2); Sodium Level 141 mmol/L (136-145); Thyroid Stim Hormone (TSH) 1.53 uIU/mL (0.358-3.74); Triglycerides 117 mg/dL; Very Low Density Lipoprotein 23 mg/dL (5-40)
[2024-03-31 15:18] LABS: Microalbumin,Random Urine 7.5 mg/L (NO RANGE EST.)
[2024-04-02 15:04] LABS: Vitamin B12 383 pg/mL (211-911)
== END | disposition home or self-care (01) ==
LOC: VSLAB 11:52
PROVIDERS: PCP Family Medicine; Visit Provider Family Medicine
DX: I10 Essential (primary) hypertension (principal); R20.8 Other disturbances of skin sensation
CPT/HCPCS: 36415; 80053; 80061; 82043; 82607; 83036; 84443; 85025

== ENCOUNTER → 2024-10-19 | Outpatient (CLI) | payer OTHER, SELFPAY ==
[2024-10-19 09:57] LABS: Vitamin B12 1266 pg/mL (211-911)
[2024-10-19 09:58] LABS: Hemoglobin A1c 5.3 % (3.8-5.6)
[2024-10-19 10:00] LABS: ALB/GLOB Ratio 1.1 RATIO (0.9-2.4); AST(SGOT) 15 U/L (15-37); Alanine Aminotransfer ALT/SGPT 19 U/L (13-56); Albumin, Serum 3.8 g/dL (3.2-5.0); Alkaline Phosphatase 103 U/L (45-117); Anion Gap 4 (5-15); BUN 12 mg/dL (7-18); Calcium,Total 9.7 mg/dL (8.5-10.1); Chloride 107 mmol/L (98-107); Cholesterol 253 mg/dL (200); EST Glomerular Filtration Rate 79 mL/min (>60); Est Glom Filt Rate - Afr Amer 96 mL/min (>60); Globulin 3.5 g/dL (2.2-4.2); Glucose 98 mg/dL (74-106); High Density Lipoprotein 82 mg/dL; Potassium 4.1 mmol/L (3.5-5.1); Protein, Total 7.3 g/dL (6.4-8.2); Sodium Level 140 mmol/L (136-145); T4 Free Direct 1.05 ng/dL (0.76-1.46); T4 Total, Thyroxin 10.6 ug/dL (4.8-13.9); Triglycerides 123 mg/dL; Very Low Density Lipoprotein 25 mg/dL (5-40)
[2024-10-19 10:51] LABS: Microalbumin,Random Urine 6.5 mg/L (NO RANGE EST.); Microalbumin:Creatinine Ratio 19.5 mg/g CRE (<30 mg/g CRE)
[2024-10-21 08:09] LABS: Thyroglobulin Antibody 1.7 IU/mL (0.0-0.9); Thyroid Peroxidase AB < 9 IU/mL (0-34); Thyroid Stim Immunoglob <0.10 IU/L (0.00-0.55)
== END | disposition home or self-care (01) ==
PROVIDERS: PCP Family Medicine; Referring Provider Family Medicine; Visit Provider Family Medicine
DX: E53.8 Deficiency of other specified B group vitamins (principal); I10 Essential (primary) hypertension; E55.9 Vitamin D deficiency, unspecified; R94.6 Abnormal results of thyroid function studies
CPT/HCPCS: 36415; 80053; 80061; 82043; 82306; 82570; 82607; 83036; 84436; 84439; 84443; 84445; 86376; 86800